=== PATIENT | female | born 1970 | race Caucasian/White ===

== ENCOUNTER 2017-06-05 06:02 | Day surgery (SDC) | payer OTHER ==
[2017-06-05] MEDS ORDERED: CEFAZOLIN/Water 2 GM/20 ML SYRINGE ONE (08:09)
[2017-06-05 08:12] LABS: #Eosinphils 0.1 thou/uL (0.0-0.7); #Lymphocytes 1.5 thou/uL (1.20-3.40); #Monocytes 0.6 thou/uL (0.11-0.59); #Neutrophils 2.8 thou/uL (1.40-6.50); %Basophils 0.5 % (0.0-1.0); %Eosinophils 2.6 % (0.0-10.0); %Lymphocytes 29.5 % (21.0-51.0); Hematocrit 36.3 % (36.0-47.0); Mean Platelet Volume 6.7 fL (7.4-10.4); Red Blood Cell (RBC) Count 4.01 mill/uL (4.20-5.40)
[2017-06-05 09:38] LABS: Bilirubin Negative (Negative); Blood, Urine Trace (Negative); Glucose, Urine (Dipstick) Negative (Negative); Ketone, Urine Negative (Negative); Nitrite Negative (Negative); Protein, Urine (Dipstick) Negative (Neg-Trace)
[2017-06-05] MEDS ORDERED: Fentanyl 100 MCG/2 ML VIAL ONE ×3 (10:15→11:49)
[2017-06-05] MEDS ORDERED: Bupivacaine/Epinephrine 0.25% 30 ML VIAL ONE (10:16)
[2017-06-05] MEDS ORDERED: Promethazine HCl 25 MG/ML VIAL ONE (11:25)
--- NOTE | 2017-06-05 11:58 | OP ---
DATE OF PROCEDURE: 06/05/2017 PREOPERATIVE DIAGNOSES: 1. Right cubital tunnel. 2. Loose body medial elbow. POSTOPERATIVE DIAGNOSIS: Right cubital tunnel. PROCEDURE PERFORMED: 1. Right cubital tunnel release. 2. Posterior long-arm splint. SURGEON: Arias Lee M.D. ANESTHESIA: Dr. Holman. The patient received LMA. ESTIMATED BLOOD LOSS: Less than 20 mL. TOURNIQUET TIME: Twenty minutes. ANTIBIOTICS: Ancef 2 grams. COMPLICATIONS: None. IMPLANTS: None. HISTORY OF PRESENT ILLNESS: Ms. Rogel is a 46-year-old inmate presented to me with right elbow pain for now almost close to a year. She has numbness, tingling. Nerve conduction studies positive for c ubital tunnel. I discussed with her the risks and benefits of a release. I discussed that the soft tissue medially the metal medially would not be easy to attain. Therefore, I elected to leave it in place. I discussed risks and benefits of the decompression to include pain, scar, bleeding, infecti on, damage to vital structures, decreased range of motion or strength, continued pain despite surgica l intervention, damage to nerve. She understood these risks and benefits and elected to proceed. Ti meout was performed designating the patient's right upper extremity as the operative site based on si ght, consents and marching markings. PROCEDURE IN DETAIL: After completion of timeout, the patient's right upper extremity was prepped an d draped in sterile fashion. Tourniquet was brought up and was left up for a total of 21 minutes. A n incision was made down on the tunnel down through skin to fat, I found the triceps, came on the lat eral aspect of the triceps, created a fascial plane, dissected, found the ulnar nerve, moved proximal ly ensured the intermuscular septum was released down entire fingerbreadths proximally to about the h prison 2/3 of the proximal humerus to ensure the nerve was completely released, moved distally, unroofed the cubital tunnel and extended its entirety using scissors. The fascia distally, splitting the mus cles, keeping the motor branches distally without cutting them. I am sure the nerve was released from any other potential adhesions. I then placed some 0 Vicryl into the fascial plane that I had elevat ed from lateral to medial, I used it to act as a sling to keep it in position, used that to sew the u [place] to keep it in its position without snapping. We then placed 0 2-0 nylon skin sutures. We t l[place] placed a posterior long arm splint. The patient received 10cc of Marcaine 0.25% with epinephrin e. The patient will remain in a splint for 1 week. She will follow up with me with preclinic films. Th e patient will follow up with me in about 12-14 days. She will remove the splint and begin range of motion as tolerated.
[2017-06-05] MEDS ORDERED: HYDROcodone/Acetaminophen 5/325 mg Tablet ONE ×2 (13:44→15:00)
[2017-06-05] MEDS ORDERED: Ibuprofen 100 MG/5 ML UDCUP ONE (16:57)
[2017-06-05] MEDS ORDERED: Ondansetron HCl/PF 4 MG/2 ML Vial ONE (17:17)
[2017-06-05] MEDS ORDERED: Propofol 200 MG/20 ML VIAL ONE (17:17)
[2017-06-05] MEDS ORDERED: Ketorolac Tromethamine 30 MG/ML VIAL ONE (17:17)
[2017-06-05] MEDS ORDERED: Lidocaine 1% PF 5 ML VIAL ONE (17:17)
== END 2017-06-05 17:04 | disposition home or self-care (01) ==
LOC: SDC 06:02
PROVIDERS: ATTEND Orthopaedic Surgery
PROC: 01N40ZZ Release Ulnar Nerve, Open Approach (ICD-10-PCS; principal; 2017-06-05)
DX: G56.21 Lesion of ulnar nerve, right upper limb (principal); E03.9 Hypothyroidism, unspecified; Z98.51 Tubal ligation status; Z79.899 Other long term (current) drug therapy; Z98.890 Other specified postprocedural states
CPT/HCPCS: 81003; 85025; 96374; J1885; J2001; J2405; J2550; J2704; J3010